=== PATIENT | female | born 1995 | race Caucasian/White ===

== ENCOUNTER 2018-01-21 10:45 | Emergency (ER) | payer OTHER ==
[~2018-01-21] VITALS: Ht 157.5 cm; Wt 79.4 kg
[2018-01-21 10:51] VITALS: TEMP 36.7; Ht 157.5 cm; Wt 79.4 kg
[2018-01-21] MEDS ORDERED: SODIUM CHLORIDE 0.9% 1000ML 1,000 ML IV ONE (11:15)
[2018-01-21] MEDS ORDERED: PRENTAB26 PO (11:44)
[2018-01-21 11:46] LABS: BASO % 0.1 %; BASO ABS # 0.01 K/uL (0-0.2); EOS % 0.3 %; EOS ABS # 0.04 K/uL (0-0.5); HEMATOCRIT 33.7 % (37-47); HEMOGLOBIN 11.4 g/dL (12.0-16.0); IG# 0.14 K/uL (0.00-0.02); LYMPH % 10.6 %; LYMPH ABS # 1.29 K/uL (1.2-3.4); MEAN CELL VOLUME 89.6 fL (80-100); MEAN CORPUSCULAR HEMOGLOBIN 30.3 pg (25-34); MEAN CORPUSCULAR HGB CONC 33.8 g/dl (32-36); MEAN PLATELET VOLUME 10.9 fL (7.4-10.4); MONO ABS # 0.73 K/uL (0.11-0.59); NEUT % 81.9 %; NEUT ABS # 10.01 K/uL (1.4-6.5); PLATELET COUNT 226 K/uL (130-400); RED CELL DISTRIBUTION WIDTH CV 13.9 % (11.5-14.5); RED CELL DISTRIBUTION WIDTH SD 45.6 fL (36.4-46.3); WHITE BLOOD COUNT 12.22 K/uL (4.8-10.8)
[2018-01-21 12:04] LABS: BLOOD UREA NITROGEN 6 mg/dl (7-18); CALCIUM 8.6 mg/dl (8.5-10.1); CARBON DIOXIDE 25 mmol/L (21-32); GLUCOSE 85 mg/dl (70-99); POTASSIUM 3.2 mmol/L (3.5-5.1); SODIUM 140 mmol/L (136-145)
[2018-01-21] MEDS ORDERED: POTASSIUM CHLORIDE 10 MEQ TABCR PO STA (12:43)
--- NOTE | 2018-01-21 15:37 | DIAGNOSTIC IMAGING REPORT ---
ULTRASOUND LIMITED CLINICAL HISTORY: Tachycardia. Lightheadedness. Decreased motion. COMPARISON STUDY: No priors. FINDINGS: Real-time, grayscale, and color Doppler sonography of the fetus and gravid uterus is performed. There is a single live uterine gestation with an estimated heart rate of 160 bpm. The femoral length measures 4.07 cm, corresponding to an estimated age of 23 weeks 1 day. The placenta is posterior. Presentation is breech. The cervix was not well visualized but appears closed. The amniotic fluid volume is grossly normal. IMPRESSION: 1. There is a single live uterine gestation with an estimated age of 23 weeks 1 day by femoral length measurement. 2. Breech presentation. 3. No acute abnormality is seen. 4. Note that this does not constitute a dedicated anatomic scan. Dictated: 01/21/2018 3:23 PM Transcribed: 01/21/2018 3:37 PM [email or web address] Electronically signed by: Moise Tavarez M.D. 01/21/2018 3:37 PM Dictated Date/Time: 01/21/2018 3:23 PM
[2018-01-21 15:48] VITALS: BP 105/67; PULSE 86; O2SAT 98
--- NOTE | 2018-01-21 19:05 | EMERGENCY ROOM VISIT NOTE ---
ED Visit Note First contact with patient: 11:00 Chief Complaint: Dizziness. History of Present Illness: Ms. Hernandes is a 22-year-old female who ambulates into the ED complaining of dizziness. Historically patient is 1 para 0 with an EDC of 05/17 and her last menstrual cycle of August 10. She reports there was a subchorionic hemorrhage that is subsequently resolved. No previous significant gynecological history. Patient reports she is up in this area for conference. She reports she was sitting at a conference table and had an acute onset of tachycardia with 130 bpm and dizziness; after questioning patient changed her dizziness to complaint to lightheadedness. Patient reports she had similar episodes during strenuous activities but never had these evaluated and this is the second time during her the first time is when she was at home cleaning house but was not evaluated. She does report she contacted her cow tester at home who encouraged her to go to the local urgent care center but was referred from the urgent care center due to their inability to test her blood sugar and blood pressure. She reports when the symptoms started she did have visual changes with dots of light in all visual dubose. She did not identified any aggravating or alleviating factors related to these symptoms. She did not take any medications or therapies for these symptoms prior to arrival at the hospital. Associated with her symptoms she did report she felt nauseated but did not vomit. Currently she reports she feeling better but still has sensations of lightheadedness while at rest. All her associated symptoms have subsequently resolved. Patient denies fevers, chills, sweats, skin eruptions, skin color changes, headache, recent head trauma, hearing changes, difficulty speaking, difficulty swallowing, difficulty ambulating/coordinating body movements, neck pain, upper respiratory tract symptoms, chest pain, shortness of breath, previous clots, claudication, cramping, recent surgery/inactivity/extended travel, abdominal pain, diarrhea, constipation, urinary symptoms, abdominal cramping, vaginal bleeding, vaginal discharge, back/flank pain. Review of Systems: As noted above in history of present illness. All body systems were reviewed and found to be negative as noted above. Past Medical History: Patient denies. Current Medications: vitamins Allergies to Medications: Patient denies. Social History: Patient is currently employed; she feels safe in her home environment; she denies tobacco and alcohol use. Physical Examination: Vital Signs: Date Time Temp Pulse Resp B/P (MAP) Pulse Ox O2 Delivery O2 Flow Rate FiO2 01/21/18 15:48 86 18 105/67 98 Room Air 01/21/18 15:01 100 16 111/72 99 Room Air 01/21/18 12:23 102 112/65 110 122/71 101 122/70 01/21/18 12:22 18 100 Room Air 01/21/18 11:44 100 01/21/18 10:51 36.7 107 18 142/84 98 Room Air GENERAL: 22-year-old female in mild distress due to symptoms, nontoxic-appearing , afebrile and hemodynamically stable. NEUROLOGICAL: Awake, alert and oriented to person, place and time. Answering questions appropriately and following commands. Normal gait. Good hand eye coordination. No focal motor or sensory deficits. Cranial nerves II through XII grossly intact. Good short-term and long-term recall. SKIN: Warm, dry and pink. No soft tissue eruptions or trauma noted. HEENT: Atraumatic and normocephalic. PERRLA. Sclera white and conjunctiva pink. No drainage from naris. Oral cavity moist and pink. Pharynx is nonerythematous or edematous. Speech normal. No lymphadenopathy. Trachea midline. No jugular venous distention. BACK: No tenderness over the bony spine. No CVA tenderness. THORAX: Lungs sounds are clear to auscultation and equal bilaterally with symmetrical chest wall. No wheezing, rales or rhonchi. No crepitus, tenderness , subcutaneous air or deformities noted. HEART: Tachycardia rate and rhythm. No gallops, rubs or murmurs are appreciated. ABDOMEN: , soft and nontender. Positive bowel sounds in all quadrants. No guarding, rigidity or organomegaly. EXTREMITIES: Moves all extremities well on command and with purpose. All distal neurovascular statuses are intact and equal bilaterally. No calf tenderness or cords. ED Course: Patient is assessed as noted above. Patient's medication list was reviewed. Laboratory Testing: Test 01/21/18 11:20 Range/Units White Blood Count 12.22 4.8-10.8 K/uL Red Blood Count 3.76 4.2-5.4 M/uL Hemoglobin 11.4 12.0-16.0 g/dL Hematocrit 33.7 37-47 % Mean Corpuscular Volume 89.6 80-100 fL Mean Corpuscular Hemoglobin 30.3 25-34 pg Mean Corpuscular Hemoglobin Concent 33.8 32-36 g/dl Platelet Count 226 130-400 K/uL Mean Platelet Volume 10.9 7.4-10.4 fL Neutrophils (%) (Auto) 81.9 % Lymphocytes (%) (Auto) 10.6 % Monocytes (%) (Auto) 6.0 % Eosinophils (%) (Auto) 0.3 % Basophils (%) (Auto) 0.1 % Neutrophils # (Auto) 10.01 1.4-6.5 K/uL Lymphocytes # (Auto) 1.29 1.2-3.4 K/uL Monocytes # (Auto) 0.73 0.11-0.59 K/uL Eosinophils # (Auto) 0.04 0-0.5 K/uL Basophils # (Auto) 0.01 0-0.2 K/uL RDW Standard Deviation 45.6 36.4-46.3 fL RDW Coefficient of Variation 13.9 11.5-14.5 % Immature Granulocyte % (Auto) 1.1 % Immature Granulocyte # (Auto) 0.14 0.00-0.02 K/uL Urine Color YELLOW Urine Appearance CLOUDY CLEAR Urine pH 7.5 4.5-7.5 Urine Specific [place] 1.019 1.000-1.030 Urine Protein NEG NEG Urine Glucose (UA) TRACE NEG Urine Ketones NEG NEG Urine Occult Blood NEG NEG Urine Nitrite NEG NEG Urine Bilirubin NEG NEG Urine Urobilinogen NEG NEG Urine Leukocyte Esterase TRACE NEG Urine WBC (Auto) 1-5 0-5 /hpf Urine RBC (Auto) 10-30 0-4 /hpf Urine Hyaline Casts (Auto) 1-5 0-5 /lpf Urine Epithelial Cells (Auto) >30 0-5 /lpf Urine Bacteria (Auto) 1+ NEG Sodium Level 140 136-145 mmol/L Potassium Level 3.2 3.5-5.1 mmol/L Chloride Level 108 98-107 mmol/L Carbon Dioxide Level 25 21-32 mmol/L Anion Gap 7.0 3-11 mmol/L Blood Urea Nitrogen 6 7-18 mg/dl Creatinine 0.50 0.60-1.20 mg/dl Est Creatinine Clear Calc Drug Dose 169.3 ml/min Estimated GFR () > 150.0 Estimated GFR (Non- 135.5 BUN/Creatinine Ratio 11.6 10-20 Random Glucose 85 70-99 mg/dl Calcium Level 8.6 8.5-10.1 mg/dl Magnesium Level 1.7 1.8-2.4 mg/dl EKG: Was read by myself and reviewed with Dr. Preciado and shows sinus tachycardia with a ventricular rate of 104 bpm. Normal intervals, complexes and axis. Normal ST waves and no indication of ischemia, injury or infarction. Records were reviewed and no previous found for comparison. Limited Ultrasound: Was reviewed by myself and read by the radiologist showing a single live intrauterine gestation estimated age of 23 weeks and 1 day in a breech position. Heart rate 160. No other abnormalities noted by the radiologist and grossly normal amniotic fluid. Patient was hydrated with normal saline and given 20 mEq of potassium chloride orally for mild hypokalemia. Patient was reassessed multiple times during her stay in the emergency department. Patient's case was reviewed with Dr. Preciado; we agreed on diagnostic approach, treatment, disposition and plan. Patient was educated about today's findings and instructed on her treatment plan ; she verbalized understanding and agreement with this plan. Clinical Impression: Lightheadedness. Mild hypokalemia. Decision-Making: Initially my differential diagnosis I considered hypotension, electrolyte abnormality, dehydration, cardiac arrhythmia, pulmonary embolism and other causes. Disposition: Patient discharged home in stable condition accompanied by female friend; prior to departure she was reassessed and subjectively reports she was feeling much better and was no longer lightheaded. Plan: Patient was encouraged to continue her current medications as prescribed. Patient was encouraged to stay well-hydrated with increased clear fluids. Patient was encouraged you 650 mg of acetaminophen every 6 hours if she need it to for pain. Patient was encouraged to call her [employer] C[employer] CUTTER and inform them of today's ED visit and request follow-up care and recheck. Patient was encouraged return the ED for worsening lightheadedness, any episodes of syncope, nausea/vomiting, fevers or any new/concerning symptoms.
== END 2018-01-21 15:53 | disposition home or self-care (01) ==
LOC: C.EDB 10:47 → C.EDC 15:53
DX: R42 Dizziness and giddiness (principal); E87.6 Hypokalemia